=== PATIENT | female | born 1975 | race Two or more races ===

== ENCOUNTER 2020-12-11 09:30 | Emergency (ER) | payer MEDICAID, OTHER ==
[~2020-12-11] VITALS: Ht 154.9 cm; Wt 81.6 kg
[2020-12-11 10:14] VITALS: BP 155/63
[2020-12-11] MEDS ORDERED: KETOROLAC TROMETH 60MG/2ML VIAL IM ONE (10:45)
== END 2020-12-11 11:11 | disposition home or self-care (01) ==
LOC: ER 09:30
DX: M23.8X1 Other internal derangements of right knee (principal)
CPT/HCPCS: 96372; 99283; J1885